=== PATIENT | male | born 1950 | race Caucasian/White ===

== ENCOUNTER 2020-10-21 14:03 | Outpatient (CLI) | payer MEDICARE, SELFPAY ==
--- NOTE | 2020-10-21 14:11 | XRR_ITS ---
PROCEDURE INFORMATION: Exam: XR Lumbosacral Spine, 2 or 3 Views Exam date and time: 10/21/2020 2:28 PM Age: 70 years old Clinical indication: Low back pain; Prior surgery; Surgery type: Hernia; Additional info: Chronic bilateral low back pain w/r sided sciatica TECHNIQUE: Imaging protocol: XR of the lumbosacral spine, 2 or 3 views. COMPARISON: No relevant prior studies available. FINDINGS: Bones/joints: No acute fracture. There is a lumbar spine scoliosis convex to the right measuring 14 degrees as measured from the superior endplate of L3 through the inferior endplate of L5. There is disc space narrowing and osteophyte formation throughout the lumbar spine. There is vacuum disc phenomenon at L3/4, L4/5 and L5/S1. Soft tissues: Unremarkable. XR/XR lumbar spine 2-3V* [id number] IMPRESSION: No acute findings. Degenerative change is identified in the spine. If there is desire for further evaluation, a MRI could be performed.
--- NOTE | 2020-10-21 14:11 | XRR_ITS ---
PROCEDURE INFORMATION: Exam: XR Chest, 2 Views Exam date and time: 10/21/2020 2:28 PM Age: 70 years old Clinical indication: Shortness of breath; Prior surgery; Surgery type: Hernia; Additional info: Cough/shortness of breath TECHNIQUE: Imaging protocol: XR of the chest Views: 2 views. COMPARISON: No relevant prior studies available. FINDINGS: Lungs: Unremarkable. No consolidation. Pleural space: Unremarkable. No pleural effusion. No pneumothorax. Heart/Mediastinum: Unremarkable. No cardiomegaly. Bones/joints: Unremarkable. XR/XR chest 2V* [id number] IMPRESSION: No acute findings.
== END 2020-10-21 14:04 | disposition home or self-care (01) ==
LOC: RAD 14:09
PROVIDERS: Family Provider Family Medicine; PCP Registered Nurse; Visit Provider Registered Nurse
DX: R05 Cough (principal); R06.02 Shortness of breath; M54.41 Lumbago with sciatica, right side
CPT/HCPCS: 71046; 72100

== ENCOUNTER 2020-11-10 12:17 | Outpatient (RCR) | payer MEDICARE, SELFPAY | END 2020-12-07 23:59 | disposition home or self-care (01) | LOC: SPT 12:17 | PROVIDERS: Family Provider Family Medicine; PCP Family Medicine; Referring Provider Registered Nurse; Visit Provider Registered Nurse | DX: M54.41 Lumbago with sciatica, right side (principal); G89.29 Other chronic pain | CPT/HCPCS: 97110; 97161 ==

== ENCOUNTER 2020-12-08 06:00 | Outpatient (RCR) | payer MEDICARE, SELFPAY | END 2020-12-31 14:01 | disposition home or self-care (01) | LOC: SPT 06:00 | PROVIDERS: Family Provider Family Medicine; PCP Family Medicine; Referring Provider Registered Nurse; Visit Provider Registered Nurse | DX: M54.41 Lumbago with sciatica, right side (principal); G89.29 Other chronic pain | CPT/HCPCS: 97110 ==

== ENCOUNTER 2021-07-02 14:36 | Outpatient (CLI) | payer MEDICARE, SELFPAY ==
--- NOTE | 2021-07-02 14:46 | MR_ITS ---
WS: [id number] MRI LUMBAR SPINE NONCONTRAST TECHNIQUE: Sagittal T1, T2 and STIR imaging. Axial T1 and T2 imaging. CLINICAL INFORMATION: LEG CRAMPING;CHRONIC JOCELYN LOW BACK PAIN W/O SCIATICA;JOCELYN HIP COMPARISON: None. FINDINGS: Mild lumbar curve. No acute compression. Disc space narrowing worse at L1-2, L3-4, L4-5, and L5-S1. S mall right foraminal protrusion T12-L1 with mild right foraminal narrowing. L1-L2: Slight retrolisthesis. Mild disc osteophyte complex with endplate ridging.Mild central canal s tenosis. Slight impingement on the right subarticular recess. Mild right and no significant left fora juan j narrowing. Mild facet arthropathy. L2-L3: Mild disc bulging with osteophytic ridging. Moderate central canal stenosis. Impingement on th e traversing left greater than right L3 nerve roots. Moderate facet arthropathy. Small right foramina l protrusion with moderate right foraminal narrowing. L3-L4: Left eccentric disc osteophyte complex with endplate ridging. Moderate central canal stenosis. Impingement traversing left L4 nerve root. Moderate to severe left foraminal narrowing. Right forame n is patent. Moderate facet arthropathy. L4-L5: Disc osteophyte complex with endplate ridging. Severe central canal stenosis with moderate fac et arthropathy and ligament flavum hypertrophy. Impingement on the traversing L5 nerve roots bilatera lly. Left foraminal protrusion impinges the exiting left L4 nerve root with severe left foraminal meseret rowing. Mild right foraminal narrowing. Moderate facet arthropathy. L5-S1: Mild disc osteophyte complex with endplate ridging. Spinal canal is patent. Mild bilateral for aminal narrowing. Moderate facet arthropathy. Visualized pelvic bony structures: Normal. Paravertebral soft tissues: Normal. Disc osteophyte complexes in the cervical spine with mild central canal stenosis in the process development manager imaging worse at C4-5. This can be followed up with cervical spine MRI. MR/MR lumbar spine wo con* [id number] IMPRESSION: 1. Lumbar curve. No acute compression. 2. Moderate central canal stenosis L2-L3 and L3-L4 with impingement on the lef t L2-3 and left L3-4 subarticular recess. 3. Severe central canal stenosis L4-5. 4. Moderate left L3-4 and severe left L4-5 foraminal narrowing. Impingement on the exiting left L4 nerve root. 5. Mild to moderate right L1-2 foraminal narrowing. 6. Disc osteophyte complexes in the cervical spine with mild central canal peter nosis in the process development manager imaging worse at C4-5. This can be followed up with cervical spine MRI.
== END 2021-07-02 14:37 | disposition home or self-care (01) ==
LOC: RADSHAW 14:45
PROVIDERS: PCP Registered Nurse; Visit Provider Registered Nurse
DX: R25.2 Cramp and spasm (principal); M54.5 Low back pain; M48.061 Spinal stenosis, lumbar region without neurogenic claudication; M25.78 Osteophyte, vertebrae
CPT/HCPCS: 72148